=== PATIENT | female | born 1945 | race Caucasian/White ===

== ENCOUNTER 2021-10-30 08:30 | Outpatient (CLI) | payer MEDICARE, OTHER ==
[2021-10-30] MEDS ORDERED: LIDOCAINE SOLN 4% 50 ML BOTTLE ONE (09:22)
== END 2021-10-30 23:59 | disposition home health service (06) ==
LOC: WOU 08:30
PROVIDERS: ATTEND Surgery
DX: L89.524 Pressure ulcer of left ankle, stage 4 (principal); L89.154 Pressure ulcer of sacral region, stage 4; E11.22 Type 2 diabetes mellitus with diabetic chronic kidney disease; N18.6 End stage renal disease; Z99.2 Dependence on renal dialysis
CPT/HCPCS: 11043

== ENCOUNTER 2022-03-05 08:22 | Outpatient (CLI) | payer MEDICARE, OTHER ==
[2022-03-05] MEDS ORDERED: LIDOCAINE SOLN 4% 50 ML BOTTLE ONE (08:30)
== END 2022-03-05 23:59 | disposition home or self-care (01) ==
LOC: WOU 08:22
PROVIDERS: ATTEND Surgery
DX: Z48.00 Encounter for change or removal of nonsurgical wound dressing (principal)
CPT/HCPCS: G0463

== ENCOUNTER 2022-03-19 08:00 | Outpatient (CLI) | payer MEDICARE, OTHER ==
[2022-03-19] MEDS ORDERED: LIDOCAINE SOLN 4% 50 ML BOTTLE ONE (08:10)
== END 2022-03-19 23:59 ==
LOC: WOU 08:00
PROVIDERS: ATTEND Surgery
DX: L89.154 Pressure ulcer of sacral region, stage 4 (principal); L89.524 Pressure ulcer of left ankle, stage 4; E11.22 Type 2 diabetes mellitus with diabetic chronic kidney disease; N18.6 End stage renal disease; Z99.2 Dependence on renal dialysis; E46 Unspecified protein-calorie malnutrition; Z68.1 Body mass index [BMI] 19.9 or less, adult
CPT/HCPCS: 15271; Q4110